=== PATIENT | male | born 1945 | race Caucasian/White ===

== ENCOUNTER 2017-06-24 08:46 | Day surgery (SDC) | payer MEDICARE, BC ==
[2017-06-24] MEDS ORDERED: Sodium Chloride 0.9% 10 ML Syringe FLUSH PRN (09:00)
[2017-06-24] MEDS: Lactated Ringers 1,000 ML IV SCH ×2 (09:42→10:28)
[2017-06-24] MEDS ORDERED: Midazolam 1 MG/ML 2 ML SDV ONE ×2 (10:11→10:36)
[2017-06-24] MEDS ORDERED: fentaNYL 250 MCG/5 ML SDV ONE (10:11)
[2017-06-24] MEDS ORDERED: Propofol 200 MG/20 ML SDV ONE ×4 (10:12→11:59)
--- NOTE | 2017-06-24 10:23 | PCM.PN ---
- General Info Date of Service: 06/24/17 - Review of Systems Systems Review Comment:: 72-year-old male here for repair of her right inguinal hernia. He is medically stable to proceed today with no significant recent change in his health status. His recent history and physical is reviewed. The site of the hernia is confirmed with the patient and marked. I discussed the proposed operative procedure with the patient. He agrees to proceed today excepting risks. - Patient Data Vitals - Most Recent: Last Vital Signs Temp 97.7 F 06/24/17 09:08 Pulse 76 06/24/17 09:08 Resp 18 06/24/17 09:08 BP 105/67 06/24/17 09:08 Pulse Ox 100 06/24/17 09:08 Weight - Most Recent: 101.605 kg Med Orders - Current: Current Medications Lactated Ringer's (Ringers, Lactated) 1,000 mls @ 125 mls/hr IV ASDIRECTED LLOYD Last Admin: 06/24/17 09:42 Dose: 125 mls/hr Sodium Chloride (Saline Flush) 10 ml FLUSH ASDIRECTED PRN PRN Reason: Keep Vein Open Discontinued Medications Fentanyl (Sublimaze) Confirm Administered Dose 250 mcg .ROUTE .STK-MED ONE Stop: 06/24/17 10:12 Midazolam HCl (Versed 1 Mg/Ml) Confirm Administered Dose 2 mg .ROUTE .STK-MED ONE Stop: 06/24/17 10:12 Propofol (Diprivan 20 Ml) Confirm Administered Dose 200 mg .ROUTE .STK-MED ONE Stop: 06/24/17 10:13 - Problem List Review Problem List Initiated/Reviewed/Updated: Yes - My Orders Last 24 Hours: My Active Orders 06/24/17 09:00 Patient Status [ADT] Routine Antiembolic Devices [RC] PER UNIT ROUTINE Peripheral IV Care [RC] . DIRECTED RT Incentive Spirometry [RC] ASDIRECTED Verify Patient Consent Obtain [RC] ASDIRECTED Lactated Ringers [Ringers, Lactated] 1,000 ml IV ASDIRECTED Sodium Chloride 0.9% [Saline Flush] 10 ml FLUSH ASDIRECTED PRN Peripheral IV Insertion Adult [OM.PC] Routine Sequential Compression Device [OM.PC] Routine - Assessment Assessment:: Right inguinal hernia - Plan Plan:: Right inguinal hernia repair with mesh
[2017-06-24] MEDS ORDERED: ceFAZolin 1 GM Vial ONE ×2 (10:36→11:22)
[2017-06-24] MEDS ORDERED: Ketamine 500 mg/10 ML MDV ONE ×2 (10:36→10:41)
[2017-06-24] MEDS ORDERED: Bupivacaine 0.25%/EPINEPHrine 1:200,000 30 ML SDV INJECT ONE (10:54)
--- NOTE | 2017-06-24 12:47 | PCM.OPNOTE ---
- General Post-Op/Procedure Note Date of Surgery/Procedure: 06/24/17 Operative Procedure(s): Right Inguinal Hernia Findings: Large Right Indirect Inguinal Hernia Pre Op Diagnosis: Right Inguinal hernia Post-Op Diagnosis: Same Anesthesia Technique: Local, MAC Primary Surgeon: Raimundo Pepe Pathology: Right Inguinal hernia sac and cord lipoma Output, Urine Amount: 0 EBL in mLs: 25 Complications: None Condition: Good Free Text/Narrative:: Intake & Output 06/23/17 06/24/17 06/24/17 22:59 06:59 14:59 Intake Total 1999 Balance 1999
[2017-06-24 14:23] VITALS: BP 120/74
--- NOTE | 2017-06-24 17:39 | OR ---
Date of Procedure: 06/24/2017 PREOPERATIVE DIAGNOSIS: Right inguinal hernia. POSTOPERATIVE DIAGNOSIS: Right indirect inguinal hernia. OPERATION PERFORMED: Repair of right inguinal hernia with mesh. INDICATIONS FOR SURGERY: This 72-year-old male has developed a large bulge in the right groin. Physical findings are consistent with an inguinal hernia and he comes for an elective repair. FINDINGS: The patient has a large indirect hernia sac in the right groin. This sac is empty down to the level of the internal ring. The cord structures otherwise appear satisfactory. No significant direct component is identified. PROCEDURE IN DETAIL: The patient was taken to the operating room. He was given IV sedation and the right groin was sterilely prepped with Betadine and draped. The right groin region was infiltrated with the Xylocaine and Marcaine mix and then a linear incision was made in the right groin, this was carried down to the external oblique fascia, which was incised opening the external ring. The ilioinguinal nerve and iliohypogastric nerve were identified and preserved. The spermatic cord was isolated and then explored. In the cord is found a large indirect sac and the sac was then carefully from the other cord structures down to the level of the internal ring. The sac was opened and found to be empty and then it was rotated on its own axis and then it was suture ligated with a 2-0 Vicryl at the level of the internal ring and this was reinforced with a 2- 0 Vicryl tie. The sac was amputated above these ties. Further exploration of the cord identified a [id number] sized lipoma and this was also removed, being dissected free from the other cord structures down to the level of the internal ring and then clamped and amputated above this clamp. A tie of 2-0 Vicryl was placed. The floor of the inguinal canal was then reinforced by placing a large size keyhole-shaped piece of polypropylene mesh in position. It was then secured down to the Chris's ligament medial to the femoral vessels and the shelving portion of the inguinal ligament anterior to these vessels with interrupted 0 Prolene. The superior edge of the mesh was secured to the internal oblique fascia near its fusion with the external oblique fascia and also with interrupted 0 Prolene, this created a good reinforcement of the floor of the inguinal canal. The spermatic cord and ilioinguinal nerve were passed through the keyhole defect in the mesh and the tails of the mesh were approximated with interrupted Prolene such that they would admit one finger tip alongside the spermatic cord. The tails of the mesh were trimmed and then laid into the space lateral to the internal ring between the internal and external oblique fascias. The wound was then irrigated with Ancef and saline solution, which had been used to soak the mesh prior to its placement. The external oblique fascia was reapproximated with a running 2-0 Vicryl recreating the external ring. The wound was irrigated and then closed by approximating the Partha's fascia with interrupted 4-0 Vicryl and the skin edges with running 4-0 Vicryl subcuticular stitch, Steri-Strips, and benzoin. Antibiotic ointment and sterile dressing were placed. The patient tolerated the procedure well and then left the operating room in satisfactory condition. ESTIMATED BLOOD LOSS: 25 mL. COMPLICATIONS: None. PROGNOSIS: Good. PETE Pepe MD /[id number]
== END 2017-06-24 15:40 | disposition home or self-care (01) ==
LOC: LL.SDS 08:46
PROVIDERS: ATTEND Surgery
DX: K40.90 Unilateral inguinal hernia, without obstruction or gangrene, not specified as recurrent (principal); N40.0 Benign prostatic hyperplasia without lower urinary tract symptoms; I10 Essential (primary) hypertension; R73.03 Prediabetes; Z79.899 Other long term (current) drug therapy; Z87.891 Personal history of nicotine dependence
CPT/HCPCS: 49505; J0690; J7120; 00830-QZ; 88302; C1781; J2250; J2704

== ENCOUNTER 2020-01-17 05:18 | Emergency (ER) | payer MEDICARE, BC ==
[2020-01-17 05:42] VITALS: BP 129/68; PULSE 93
[2020-01-17 06:30] LABS: CHLORIDE,CL 106 mmol/L (98-107); SODIUM,NA 141 mmol/L (136-145)
--- NOTE | 2020-01-17 06:54 | EDM.PDOC ---
ED HPI GENERAL MEDICAL PROBLEM - General Chief Complaint: Genitourinary Problem Stated Complaint: urinary retention Time Seen by Provider: 01/17/20 06:15 Source of Information: Reports: Patient History Limitations: Reports: No Limitations - History of Present Illness INITIAL COMMENTS - FREE TEXT/NARRATIVE: Unable to urinate since yesterday around noon. Doing well otherwise. No acute changes/fevers. Was constipated yesterday but eventually had good BM. No history of previous constipation issues. Previous hx hernia surgery but no previous prostate issues other than a reported elevated PSA. Pelvic Pain Score (Numeric/FACES): 7 - Related Data Allergies Allergy/AdvReac Type Severity Reaction Status Date / Time No Known Allergies Allergy Verified 01/17/20 06:38 Home Meds: Home Meds Carbidopa/Levodopa [Carbidopa-Levo ER 50-200] 1 tab PO TID 07/25/15 [History] Hydroxychloroquine Sulfate 200 mg PO DAILY 07/25/15 [History] Lisinopril/Hydrochlorothiazide [Lisinopril-Hctz 20-12.5 mg Tab] 1 tab PO DAILY 07/25/15 [History] Simvastatin 10 mg PO DAILY 07/25/15 [History] Vardenafil HCl [Levitra] 20 mg PO DAILY PRN 07/25/15 [History] rOPINIRole HCl [Ropinirole HCl] 1 mg PO TID 07/25/15 [History] Polyethylene Glycol 3350 [MiraLAX] 17 g PO BID 12/07/15 [History] Sildenafil Citrate 50 mg PO ASDIRECTED PRN 06/24/17 [History] Diltiazem [Cardizem CD] 120 mg PO DAILY 01/17/20 [History] Past Medical History HEENT History: Reports: Impaired Vision Other HEENT History: reading glasses. Has full upper and lower dentures Cardiovascular History: Reports: High Cholesterol Other Cardiovascular History: Left Ventricular hypertrophy Respiratory History: Reports: None Gastrointestinal History: Reports: Chronic Constipation, GERD Genitourinary History: Reports: BPH Musculoskeletal History: Reports: Osteoarthritis, Other (See Below) Other Musculoskeletal History: Left rotator cuff injury Neurological History: Reports: Parkinson's, Other (See Below) Other Neuro History: Paralysis agitans Psychiatric History: Reports: None Endocrine/Metabolic History: Reports: Diabetes, Type II, Other (See Below) Other Endocrine/Metabolic History: Pre-diabetic Hematologic History: Reports: None Immunologic History: Reports: None Oncologic (Cancer) History: Reports: Malignant Melanoma Other Oncologic History: Patient states some type of skin cancer, patient unsure. Removal of cancer at [facility] on 07/18/15 Dermatologic History: Reports: Melanoma Other Dermatologic History: Cancer on nose, patient unsure what kind - Infectious Disease History Infectious Disease History: Reports: Chicken Pox, Measles, Mumps - Past Surgical History Cardiovascular Surgical History: Reports: Other (See Below) Other Cardiovascular Surgeries/Procedures: angiogram Musculoskeletal Surgical History: Reports: Shoulder Surgery, Other (See Below) Other Musculoskeletal Surgeries/Procedures:: Right foot surgery; left shoulder cuff repair Dermatological Surgical History: Reports: Skin Biopsy - Past Imaging History Past Imaging History: Reports: Angiography, DEXA Scan, MRI, Stress Testing Social & Family History - Family History Cardiac: Reports: Bypass, High Cholesterol, Hypertension, [place] Musculoskeletal: Reports: Osteoarthritis (Parents, grandmother) Neurological: Reports: Cerebral Aneurysms Oncologic: Reports: Leukemia (Father with fatal leukemia at age 90) Other Oncologic Family History: Lukemia - Tobacco Use Smoking Status *Q: Former Smoker Years of Tobacco use: 27 Packs/Tins Daily: 1 Used Tobacco, but Quit: Yes Month/Year Tobacco Last Used: 1 Second Hand Smoke Exposure: Yes - Caffeine Use Caffeine Use: Reports: Coffee - Recreational Drug Use Recreational Drug Use: No - Living Situation & Occupation Living situation: Reports: , with Family Occupation: Retired ED ROS GENERAL - Review of Systems Review Of Systems: See Below Constitutional: Reports: No Symptoms. Denies: Fever, Chills, Malaise, Weakness Respiratory: Denies: Shortness of Breath Cardiovascular: Denies: Chest Pain GI/Abdominal: Reports: Constipation. Denies: Distension, Nausea, Vomiting : Reports: Urinary Retention. Denies: Discharge, Dysuria, Flank Pain, Frequency, Hematuria, Incontinence, Urgency Musculoskeletal: Reports: Other (No acute changes from baseline) Skin: Reports: No Symptoms Neurological: Reports: No Symptoms Psychiatric: Reports: No Symptoms ED EXAM, GENERAL - Physical Exam Exam: See Below Exam Limited By: No Limitations General Appearance: Alert, WD/WN, No Apparent Distress Eye Exam: Bilateral Eye: EOMI Nose: No: Nasal Deformity, Nasal Swelling, Nasal Drainage Throat/Mouth: Normal Lips, Normal Voice, No Airway Compromise Head: Atraumatic, Normocephalic Neck: Supple Respiratory/Chest: No Respiratory Distress, Lungs Clear, Normal Breath Sounds, No Accessory Muscle Use Cardiovascular: Regular Rate, Rhythm, No Murmur GI/Abdominal: Soft, Non-Tender (Male) Exam: Other (normal appearing external male genitalia) Rectal (Males) Exam: Deferred Back Exam: No: Muscle Spasm Extremities: Normal Capillary Refill Neurological: Alert, Oriented, Normal Cognition Psychiatric: Normal Affect, Normal Mood Skin Exam: Warm, Dry, Intact Course - Vital Signs Last Recorded V/S: Last Vital Signs Temp 36.8 C 01/17/20 05:34 Pulse 93 01/17/20 05:34 Resp 16 01/17/20 05:34 BP 129/68 01/17/20 05:34 Pulse Ox 100 01/17/20 05:34 - Orders/Labs/Meds Orders: Active Orders 24 hr Category Date Time Status Bladder Scan [RC] ASDIRECTED Care 01/17/20 06:01 Active Insert Hernandez Catheter [Insert Urinary Catheter] [OM.PC] Care 01/17/20 06:00 Ordered Q24H Urinary Catheter Assessment [RC] ASDIRECTED Care 01/17/20 06:01 Active Labs: Laboratory Tests 01/17/20 01/17/20 01/17/20 Range/Units 06:04 06:04 06:15 WBC 6.2 (4.0-10.2) K/uL RBC 4.45 (4.33-5.41) M/uL Hgb 13.5 (13.1-16.8) g/dL Hct 41.2 (39.0-49.0) % MCV 92.6 D (84.0-98.0) fL MCH 30.3 (28.2-33.3) pg MCHC 32.8 (31.7-36.0) g/dL RDW 13.6 (11.2-14.1) % Plt Count 223 (150-350) K/uL Neut % (Auto) 67.6 (45.0-80.0) % Lymph % (Auto) 18.5 (10.0-50.0) % Carlton % (Auto) 11.5 (2.0-14.0) % Eos % (Auto) 2.1 (0.0-5.0) % Baso % (Auto) 0.3 (0.0-2.0) % Neut # (Auto) 4.15 (1.40-7.00) K/uL Lymph # (Auto) 1.14 (0.50-3.50) K/uL Carlton # (Auto) 0.71 (0.00-1.00) K/uL Eos # (Auto) 0.13 (0.00-0.50) K/uL Baso # (Auto) 0.02 (0.00-0.20) K/uL Sodium 141 (136-145) mmol/L Potassium 4.1 (3.5-5.1) mmol/L Chloride 106 (98-107) mmol/L Carbon Dioxide 26.1 (21.0-32.0) mmol/L BUN 25 H (7-18) mg/dL Creatinine 0.83 (0.51-1.17) mg/dL Est Cr Clr Drug Dosing TNP Estimated GFR (MDRD) > 60 mL/min Glucose 102 (74-106) mg/dL Calcium 9.0 (8.5-10.1) mg/dL Total Bilirubin 0.7 (0.2-1.0) mg/dL AST 26 (15-37) U/L ALT 10 L (12-78) U/L Alkaline Phosphatase 59 (46-116) IU/L Total Protein 7.5 (6.4-8.2) g/dL Albumin 4.2 (3.4-5.0) g/dL Specimen Type Urincath Urine Color Yellow Urine Appearance Clear Urine pH 7.0 (5.0-9.0) Ur Specific [place] 1.020 (1.005-1.030) Urine Protein Negative (NEGATIVE) mg/dL Urine Glucose (UA) Negative (NEGATIVE) mg/dL Urine Ketones Negative (NEGATIVE) mg/dL Urine Occult Blood Small H (NEGATIVE) Urine Nitrite Negative (NEGATIVE) Urine Bilirubin Negative (NEGATIVE) Urine Urobilinogen 0.2 (0.2-1.0) E.U./dL Ur Leukocyte Esterase Negative (NEGATIVE) Urine RBC 10-20 H /HPF Urine WBC Not seen /HPF - Re-Assessments/Exams Free Text/Narrative Re-Assessment/Exam: Bladder scan showed around a 1000ml retained urine. Hernandez inserted and 1400ml obtained. Hernandez left in place and Urology contacted at [facility]. Discussed patient with who recommended follow up with Urology clinic for comprehensive workup and Hernandez removal within the next 1-2 weeks. CBC/Chem/UA unremarkable. Departure - Departure Time of Disposition: 06:45 Disposition: Home, Self-Care 01 Condition: Good Clinical Impression: Retention of urine - Discharge Information *PRESCRIPTION DRUG MONITORING PROGRAM REVIEWED*: Not Applicable *COPY OF PRESCRIPTION DRUG MONITORING REPORT IN PATIENT MAMTA: Not Applicable Instructions: Indwelling Urinary Catheter Care, Adult, Acute Urinary Retention, Male, [id number] Referrals: Florencio Lopez PA [Primary Care Provider] - Forms: ED Department Discharge Additional Instructions: Plan on keep the catheter in for a week or two. Call [facility] at [phone] and ask for the Urology department. Make an appointment to be seen at Urology either this week or next week. Tell them we spoke to today from Urology about your urinary problems and need to have a catheter. recommended getting seen within the next week or two. Follow up otherwise as needed if you have additional problems/concerns. Sepsis Event Note (ED) - Evaluation Sepsis Screening Result: No Definite Risk - Focused Exam Vital Signs: Vital Signs Temp Pulse Resp BP Pulse Ox 01/17/20 05:34 36.8 C 93 16 129/68 100 - My Orders Last 24 Hours: My Active Orders 01/17/20 06:00 Insert Hernandez Catheter [Insert Urinary Catheter] [OM.PC] Q24H 01/17/20 06:01 Bladder Scan [RC] ASDIRECTED Urinary Catheter Assessment [RC] ASDIRECTED - Assessment/Plan Last 24 Hours: My Active Orders 01/17/20 06:00 Insert Hernandez Catheter [Insert Urinary Catheter] [OM.PC] Q24H 01/17/20 06:01 Bladder Scan [RC] ASDIRECTED Urinary Catheter Assessment [RC] ASDIRECTED
== END 2020-01-17 07:30 | disposition home or self-care (01) ==
LOC: LL.ED 05:18
DX: N40.1 Benign prostatic hyperplasia with lower urinary tract symptoms (principal); R33.8 Other retention of urine; E78.00 Pure hypercholesterolemia, unspecified; G20 Parkinson's disease; E11.9 Type 2 diabetes mellitus without complications; Z87.891 Personal history of nicotine dependence; Z79.899 Other long term (current) drug therapy
CPT/HCPCS: 36415; 51702; 51798; 80053; 81001; 85025; 99283-25